=== PATIENT | female | born 1990 | race African-American/Black ===

== ENCOUNTER 2017-12-24 07:15 | Day surgery (SDC) | payer MEDICAID ==
[2017-12-18 11:39] LABS: APPEARANCE,URINE CLEAR; BILIRUBIN,URINE NEGATIVE (NEGATIVE); COLOR,URINE YELLOW; GLUCOSE, URINE NEGATIVE (NEGATIVE); KETONES,URINE TRACE mg/dL (NEGATIVE); LEUKOCYTE ESTERASE,URINE NEGATIVE (NEGATIVE); NITRITE,URINE NEGATIVE (NEGATIVE); PROTEIN,URINE NEGATIVE (NEGATIVE); UROBILINOGEN,URINE NEGATIVE mg/dL (<2.0)
[2017-12-18 11:40] LABS: HEMATOCRIT 39.5 % (36.0-47.0); HEMOGLOBIN 13.2 g/dL (12.0-15.5); MEAN CORPUSCULAR HEMOGLOBIN 30.3 pg (27.0-33.4); MEAN CORPUSCULAR HGB CONC 33.4 g/dL (32.0-36.0); MEAN CORPUSCULAR VOLUME 91 fl (80-97); PLATELET COUNT 212 10^3/uL (150-450); RED BLOOD COUNT 4.35 10^6/uL (3.72-5.28); RED CELL DISTRIBUTION WIDTH 12.9 % (11.5-14.0); WHITE BLOOD COUNT 5.2 10^3/uL (4.0-10.5)
[~2017-12-24 07:15] MED LIST: ACETAMINOPHEN 100 ML IV ONE; FENTANYL CITRATE INJ/PF 100 MCG/2 ML AMPUL ONE; LACTATED RINGERS 1000 ML IV PRN; LIDOCAINE 0.5% INJ-PF (5 MG/ML) 50 ML SDV SUBCUT PRN; LIDOCAINE 1%/EPINEPHRINE INJ 20 ML VIAL ONE; MIDAZOLAM 2 MG/2 ML INJ ONE; ONDANSETRON HCL INJ/PF 4 MG/2 ML SDV ONE; PROPOFOL INJ 200 MG/20 ML VIAL IV ONE
[2017-12-24] MEDS ORDERED: PROMETHAZINE HCL INJ 25 MG/1 ML VIAL IV PRN (08:18)
[2017-12-24] MEDS ORDERED: DIPHENHYDRAMINE HCL 50 MG/ML VIAL IV PRN (08:18)
[2017-12-24] MEDS ORDERED: FENTANYL CITRATE INJ/PF 100 MCG/2 ML AMPUL IV PRN ×3 (08:18)
[2017-12-24] MEDS ORDERED: IBUPROFEN 800 MG TABLET ONE (09:47)
[2017-12-24 10:51] VITALS: BP 122/83
[2017-12-24] MEDS ORDERED: GLYCOPYRROLATE INJ 0.4 MG/2 ML VIAL ONE (12:09)
[2017-12-24] MEDS ORDERED: DEXAMETHASONE SOD PHOSPHATE INJ 4 MG/1 ML VIAL ONE (12:09)
[2017-12-24] MEDS ORDERED: LIDOCAINE 2% INJ-PF (20 MG/ML) 2 ML AMPUL ONE (12:09)
[2017-12-24] MEDS ORDERED: KETOROLAC TROMETHAMINE 60 MG/2 ML SDV ONE (12:09)
--- NOTE | 2018-01-21 03:58 | Operative Report ---
Operative Report DATE OF SURGERY: 12/24/17 PREOPERATIVE DIAGNOSIS: KIRAN III, persistent KIRAN III despite prior LEEP POSTOPERATIVE DIAGNOSIS: DEBBIE OPERATION: EUA, Paracervical Block, CKC, ECC SURGEON: CONCEPCIÓN IBRAHIM ANESTHESIA: GA TISSUE REMOVED OR ALTERED: CKC, ECC COMPLICATIONS: None ESTIMATED BLOOD LOSS: 5ml INTRAOPERATIVE FINDINGS: decreased Lugols uptake from 12 to 4 o'clock. More extensive area anteriorly from 12-2 o'clock. IVF 800ml, UOP 50ml PROCEDURE: Anesthesia: [Shiv Serrato CRNA, MD] IVF: [800ml] UOP: [50ml] Indications: [26yo with regent HGSIL pap smear and h/o LEEP within the last 2 years that had positive margins. Reviewed extensively options for treatment including Colposcopy followed by repeat LEEP or CKC or proceeding straight to LEEP or CKC. Reviewed LEEP versus CKC extensively including the risk/benefits of each (including incompetent cervix and cervical stenosis). She strongly desired to proceed to CKC with evaluation under anesthesia to have definitive management of cervical dysplasia. The risks, benefits, alternatives were reviewed and she desires to proceed.] Procedure: The patient was taken to the Operating Room where general anesthesia was obtained without difficulty. She was prepped and draped in the normal sterile fashion in the dorsal lithotomy position. Exam under anesthesia was performed and noted above. A speculum was placed in the vagina. The anterior cervix was grasped with a single-tooth tenaculum after paracervical block was performed with 8 mL of 1% lidocaine with epinephrine. A suture was placed with 2-0 vicryl at the 3 o'clock and 9 o'clock positions. Lugols was then placed ont he cervix with findings as noted above. The blade was then used to perform coniziation in the usual fashion with shallow placement in order to preserve as much of the cervix as possible. Endocervical sampling obtained above the C specimen. The [facility] bed was then cauterized in the usual fashion. Gel foam soaked in monsels was then placed at the CKC bed. The suture tails were tied over the monsels soaked foam. All sites hemostatic. Sponge lap needle and instrument counts are correct 2. The patient tolerated the procedure well and was taken to the recovery area awake and in stable condition.
== END 2017-12-24 10:40 | disposition home or self-care (01) ==
LOC: OROUT 07:15
PROVIDERS: ATTEND Student in an Organized Health Care Education/Training Program
DX: N87.0 Mild cervical dysplasia (principal); Z01.818 Encounter for other preprocedural examination
CPT/HCPCS: 36415; 85027; 81025; 81001; 88305 ×2; 88307 ×2; 57520; J2250; J3490 ×4; J1100; J1885; J3010; J2405; J2704; J0131; 940